=== PATIENT | female | born 1980 | race Caucasian/White ===

== ENCOUNTER → 2016-10-23 | Outpatient (CLI) | payer OTHER ==
[~2016-10-23] MED LIST: AMOXICILLIN PO; AMOXICILLIN500 M1 PO; CIPRO PO; DICLOFENAC SODI50 MG PO; FLAGYL PO; MEDROL PO; ORTHO EVRA1 PATCH.WK; PYRIDIUM PO
--- NOTE | ~2016-10-23 | MR113 ---
[facility] A Service of [facility] & [facility] RADIOLOGY TEXT RESULTS PATIENT: LEROY YANEZ LOCATION: [facility] : 76 UNIT #: [id number] AGE: [address]: Ruiz Mauricio MD SEX: F ORDER DR: [id number] [address] [address] [id number] O MR#: [id number] Acc #: [id number] NAME: LEROY YANEZ : 1980 SEX: F STUDY DATE/TIME: 10/23/2016 14:26 UNIT: [facility] ROOM: STUDY DESCRIPTION: MR Lumbar Wo Contrast Attending Physician: Ruiz Mauricio M.D. Referring Physician: Ruiz Mauricio M.D. Ordering Physician: Ruiz Mauricio M.D. Primary Care Physician: Jovita Oliver A.P.R.N. MRI CENTER REPORT This report is preliminary unless electronic signature is present. EXAM MRI of the lumbar spine without contrast, dated 10/23/16. COMPARISON MRI of the lumbar spine without contrast dated 10/02/15. HISTORY Increased low back pain for approximately 18 months with right lower extremity radiculopathy and sciatica. FINDINGS Multisequence, multiplanar imaging of the lumbar spine was obtained without contrast. Vertebral body heights and alignment are preserved. Degenerative disc disease is seen at L2-3 and L5-S1. Conus terminates at L1, close to L1-2 disc. Signal of conus and cauda equina are within normal limits. Pre and paravertebral soft tissues do not demonstrate any significant abnormality. L1-2: Mild bilateral facet change, but otherwise, unremarkable. L2-3: Concentric disc bulge with superimposed right central to left subarticular broad-based protrusion with borderline size to mild canal stenosis. No significant neural foraminal narrowing. Mild bilateral facet changes. L3-4, L4-5: Bulges with borderline size canal. Along the posterior and inferior aspect of right L3-4 facet joint, there is a small synovial cyst/inflammatory tissue which extends to the level of L4-5. It is noted abutting the right L4 lamina, benign. L5-S1: Concentric disc bulge with superimposed left central to right subarticular moderate broad-based protrusion which is most prominent in STS. [facility] A Service of [facility] RADIOLOGY TEXT RESULTS PATIENT: LEROY YANEZ LOCATION: [facility] : 76 UNIT #: [id number] AGE: [address]: Ruiz Mauricio MD SEX: F ORDER DR: the right central to subarticular region. It impinges on the right S1 nerve root. No significant neural foraminal narrowing. Minimal bilateral facet changes. It appears to have improved when compared to the previous study slightly. IMPRESSION 1. Redemonstrated are the degenerative changes, relatively worse at L5-S1 with left central to right subarticular broad-based disc protrusion, most prominent in the right subarticular region impinging on the right S1 nerve root. It is stable to slightly improved when compared to the prior study from last year. 2. The other degenerative changes are relatively stable. Dictated by... Idalia Viera/santa TD: 10/24/2016 20:24 JOB #: [id number] MRI CENTER REPORT Page 1 of 1
== END | disposition home or self-care (01) ==
LOC: SMRI 12:56 → CMRI 12:56
DX: M51.16 Intervertebral disc disorders with radiculopathy, lumbar region (principal); M54.18 Radiculopathy, sacral and sacrococcygeal region; M47.26 Other spondylosis with radiculopathy, lumbar region; M47.27 Other spondylosis with radiculopathy, lumbosacral region; M51.17 Intervertebral disc disorders with radiculopathy, lumbosacral region
CPT/HCPCS: 72148